=== PATIENT | female | born 1995 | race Caucasian/White ===

== ENCOUNTER 2023-04-20 10:18 | Inpatient (IN) | payer OTHER ==
[~2023-04-20] VITALS: Ht 152.4 cm; Wt 3.6 kg
[2023-04-28] MEDS ORDERED: PRENATAL CAPLE1 EAC1 (06:10)
[2023-04-28] MEDS ORDERED: PEPCID AC20 MG (06:11)
[2023-04-28] MEDS ORDERED: MORPHINE SULFATE 4 MG/ML CARTRIDGE IV PRN (06:30)
[2023-04-28] MEDS ORDERED: OXYTOCIN 500 ML IV SCH (06:30)
[2023-04-28] MEDS ORDERED: RINGERS SOLUTION,LACTATED 1,000 ML IV SCH (06:30)
[2023-04-28 07:16] LABS: PH,URINE 6.5 (5.0-8.0); URINE APPEARANCE Clear; URINE BILIRRUBIN Negative (NEGATIVE); URINE BLOOD Negative; URINE COLOR Yellow; URINE GLUCOSE Negative (NEGATIVE); URINE LEUKOCYTE Negative; URINE NITRATE Negative; URINE PROTEIN Negative (NEGATIVE); URINE UROBILINOGEN 0.2 E.U./dl
[2023-04-28 07:18] LABS: URINE BACTERIA 1908.5 uL (0.0-1933); URINE EPITHELIAL CELLS 12.8 uL (0.0-38.8); URINE RBC 2.2 uL (0.0-20.8); URINE WBC 28.5 uL (0.0-23.2)
[2023-04-28 07:19] LABS: ALBUMIN 2.7 gm/dL (3.4-5.0); BILIRUBIN TOTAL 0.48 mg/dL (0.3-1.2); CALCIUM 9.3 mg/dL (8.5-10.1); CREATININE SERUM 0.63 mg/dL (0.55-1.02); GFR 111.72; GLOBULINA 3.5 G/DL (2.4-3.5); POTASSIUM 4.18 mEq/L (3.5-5.1); TOTAL PROTEIN 6.2 gm/dL (6.4-8.2)
[2023-04-28 07:26] LABS: HEMATOCRIT 37.3 % (36.0-45.00); MEAN CELL VOLUME 90.2 fL (80.00-100.00); MEAN CORPUSCULAR HEMOGLOBIN 31.4 pg (27.00-32.0); MEAN CORPUSCULAR HGB CONC 34.8 g/dl (32.0-36.0); PLATELET COUNT 188 K/uL (150-450); RED BLOOD COUNT 4.14 M/uL (4.00-6.00); RED CELL DISTRIBUTION WIDTH 17.1 % (11.5-14.5)
[2023-04-28 09:33] LABS: INR 0.95; PARTIAL THROMBOPLASTIN TIME 28.5 SECONDS (22.0-34.0)
[2023-04-28] MEDS ORDERED: FAMOTIDINE/PF 20 MG/2 ML VIAL IV ONE (13:30)
[2023-04-28] MEDS ORDERED: GENTAMICIN SULFATE 40 MG/ML VIAL IV ONE (20:15)
[2023-04-28] MEDS ORDERED: CLINDAMYCIN PHOSPHATE 150 MG/ML (900mg) IV ONE (20:15)
[2023-04-28] MEDS ORDERED: OXYTOCIN 10 UNITS/ML VIAL ONE (20:34)
[2023-04-28] MEDS ORDERED: ERYTHROMYCIN BASE 3.5 GM OINT...G. OP ONE (20:34)
[2023-04-28] MEDS ORDERED: CEFAZOLIN SODIUM 1,000 MG VIAL ONE (20:34)
[2023-04-28] MEDS ORDERED: MORPHINE SULFATE 4 MG/ML VIAL IV SCH (21:00)
[2023-04-28] MEDS ORDERED: DOCUSATE SODIUM 100MG CAP PO SCH (21:00)
[2023-04-28] MEDS ORDERED: KETOROLAC TROMETHAMINE 30 MG VIAL IV SCH (21:00)
[2023-04-28] MEDS ORDERED: SIMETHICONE 125 MG CAPSULE PO SCH (21:00)
[2023-04-28] MEDS ORDERED: METOCLOPRAMIDE HCL 5 MG/ML VIAL ONE (21:18)
[2023-04-28] MEDS ORDERED: OXYTOCIN 10 UNITS/ML VIAL IV ONE (23:00)
[2023-04-28] MEDS ORDERED: ERYTHROMYCIN BASE 1 GM TUBE OP ONE (23:00)
[2023-04-29] MEDS ORDERED: ACETAMINOPHEN 500 MG GEL..CAP PO SCH (06:00)
[2023-04-29 06:34] LABS: MEAN CELL VOLUME 90.7 fL (80.00-100.00); MEAN CORPUSCULAR HGB CONC 34.1 g/dl (32.0-36.0); PLATELET COUNT 194 K/uL (150-450); RED BLOOD COUNT 4.19 M/uL (4.00-6.00)
[2023-04-29] MEDS ORDERED: PNV,CALCIUM 72/IRON/FOLIC ACID 1 TAB TABLET PO SCH (09:00)
[2023-04-29] MEDS ORDERED: GABAPENTIN 300 MG CAPSULE PO SCH (09:00)
[2023-04-29] MEDS ORDERED: IBUprofen 600 MG TABLET PO SCH (12:00)
[2023-04-29] MEDS ORDERED: FAMOtidine 20 MG TABLET PO SCH (17:00)
[2023-04-29] MEDS ORDERED: SIMETHICONE 125 MG CAPSULE PO SCH (17:00)
== END 2023-04-30 14:01 | disposition home or self-care (01) | DRG 788 ==
LOC: LDR 04-28 05:30 → O/R 04-28 21:12 → OB/GYN 04-28 22:16
PROVIDERS: ADMIT Obstetrics & Gynecology Gynecology; ATTEND Obstetrics & Gynecology Gynecology
PROC: 4A1HXCZ Monitoring of Products of Conception, Cardiac Rate, External Approach (ICD-10-PCS; 2023-04-28)
PROC: 10D00Z1 Extraction of Products of Conception, Low, Open Approach (ICD-10-PCS; principal; 2023-04-28 20:30)
DX: O62.1 Secondary uterine inertia (principal); O36.63X0 Maternal care for excessive fetal growth, third trimester, not applicable or unspecified; Z3A.38 38 weeks gestation of pregnancy; Z37.0 Single live birth; Z20.822 Contact with and (suspected) exposure to COVID-19